=== PATIENT | female | born 1945 | race Caucasian/White ===

== ENCOUNTER 2019-10-27 13:30 | Emergency (ER) | payer MEDICARE, OTHER, SELFPAY ==
[2019-10-27 13:33] VITALS: BP 134/68; PULSE 72; RESP 18; TEMP 36.4; O2SAT 98
--- NOTE | 2019-10-27 13:45 | ED.GENADUL_ITS ---
Discharge Plan Disposition Patient Disposition: HOME Condition: Good Discharge Details Chief Complaint: Orthopedic Clinical Impression: Contusion of knee Primary Care Provider: Shannon Garcia ED Provider: Belinda Murillo Discharge Instructions Instructions: Contusion in Adults (ED) Additional Instructions: Encourage rest, ice, elevation. Ibuprofen as needed for discomfort. Please continue with Omar wrap to help with swelling will pain persist. If you develop new or worsening symptoms please seek care urgently once again. Otherwise, please follow-up with primary care if not improved in the next 2 weeks. Referrals: Shannon Garcia MD [Primary Care Provider] - Discharge Data Discharge Date/Time-TO BE ENTERED AT DEPARTURE: 10/27/19 16:05 Medical Decision Making Patient is 74-year-old female presented today with chief complaint of bilateral knee pain. Patient reports she slipped out of her car on some ice and landed directly on both knees onto the pavement. Struck anterior knees and since that time has not attempted to ambulate. Indicates the patella and prepatellar area is area of maximal discomfort. Denies previous surgeries or injuries to her knees. Denies striking her head, no loss of conscious. Denies other injury the time of the incident. No break in the skin. On exam, she has full range of motion., Ligamentously intact. No swelling no effusion. No evidence of trauma on her skin. Pain with palpation over her right > left patella. While she initially endorsed bilateral knee pain, left knee pain was very minimal with exam, again over the patella. i am concerned for possible patella fx. She is able to straight leg riase bilaterally. No palpable defect to either patellar tendon. Plan for XR of right knee. XR reviewed by radiologist: BONES: No acute fracture is present. No bony destructive lesion is seen. JOINTS: The knee is normally aligned. No joint effusion is seen. SOFT TISSUE: Normal. IMPRESSION: Unremarkable radiographs of the right knee. BONES: No acute fracture is present. No bony destructive lesion is seen. JOINTS: The knee is normally aligned. No joint effusion is seen. SOFT TISSUE: Normal. IMPRESSION: Normal radiographs of the left knee. Discussed these findings with [facility] patient. Advised that pain is likely associated with contusion. Encouraged RICE. Advised that OMAR may be of help if swelling was to ocur. Advised Tylenol and/or Ibuprofen as needed for discomfort. Advised f/u with PCP if not improving in the next 1-2 weeks. All of her questions and concerns were addressed, she is in agreement with this plan. HPI General Mode of arrival: ambulatory . Date/Time Provider Initiated Documentation: 10/27/19 13:38 . Limitations to Documentation: no limitations . Information obtained by: patient, family () and RN notes reviewed . HPI Narrative: Patient 74-year-old female, company by her , with chief complaint of bilateral knee pain. She reports prior to arrival, she was getting out of her car when she slipped on ice. States that she fell directly on the anterior aspect of bilateral knees and now has severe pain in bilateral patellas. Denies striking her head, no loss of conscious. Denies any headache. Denies other injury the time of the incident. No previous surgery to this knee, no previous injuries. Patient has not attempted to ambulate since fall Related Data Allergies Allergy/AdvReac Type Severity Reaction Status Date / Time Barbiturates AdvReac Intermediate chills/vomi Unverified 10/27/19 13:37 ting older muscle relaxants AdvReac Intermediate Uncoded 10/27/19 13:37 General Stated Complaint: Orthopedic MATTEO: 3 Review of Systems Constitutional Constitutional: Reports as per HPI, Denies chills, Denies fever(s), Denies headache(s) and Denies weakness ENT Ears, Nose, Mouth, and Throat: Denies headache(s) Cardiovascular Cardiovascular: Reports as per HPI Respiratory Respiratory: Reports as per HPI and Denies cough Musculoskeletal Musculoskeletal: Reports as per HPI and Denies tingling Integumentary/Breasts Skin/Breast: Reports as per HPI, Denies rash and Denies wounds Neurologic Neurologic: Reports as per HPI, Denies headache(s), Denies tingling, Denies paresthesias and Denies weakness FOR[facility] Social History Smoking/Tobacco Use Status: Never Drug use: Never Substance use type: does not use Do you feel safe at home: Yes Do you feel safe in your relationship?: Yes Exam Const General: cooperative, healthy appearing, comfortable, no acute distress, well developed and well groomed Nutritional Appearance: average body habitus and well nourished Orientation: alert and awake Resp Effort & Inspection: normal respiratory effort, able to speak in complete sentences and no respiratory distress Cardio Rate: regular rate Rhythm: regular rhythm Skin General skin exam: no rashes or lesions noted Lesions: no lesions Rashes: no rashes Trauma: no lacerations or abrasions Neuro General: alert and awake Cognition: normal cognition Speech: speech normal Gait: normal gait Motor: muscle tone normal throughout Sensory Exam: no sensory deficits noted Extrem Right lower extremity: normal to inspection, full ROM, normal capillary refill, no joint enlargement, hip/thigh Details: normal to inspection, knee Details: normal to inspection, tenderness Location: of the patella and of the pre- patellar area, normal ROM, knee ligament exam normal Details: anterior drawer test normal, posterior drawer test normal, valgus stress test normal and varus stress test normal; no pain with axial loading and Fox's Test Details: negative medially and laterally; no swelling, no abrasions, no lacerations, no ecchymosis, no crepitus, no deformity and no unusual warmth, lower leg Details: normal to inspection and foot Details: normal capillary refill and vascular exam Details: dorsalis pedis pulse present; no tenderness and no unusual warmth; no edema Left lower extremity: normal to inspection, full ROM, normal capillary refill, no joint enlargement, hip/thigh Details: normal to inspection, knee Details: normal to inspection, tenderness Location: of the patella and of the pre- patellar area, normal ROM, knee ligament exam normal Details: anterior drawer test normal, posterior drawer test normal, valgus stress test normal and varus stress test normal; pain with axial loading and Fox's Test Details: negative medially and laterally; no swelling, no abrasions, no lacerations, no ecchymosis, no crepitus, no deformity and no unusual warmth, lower leg Details: normal to inspection and foot Details: normal capillary refill, toes with normal ROM and vascular exam Details: dorsalis pedis pulse present; no tenderness; no edema Psych Appearance: grossly normal and well kempt Mental Status: mental status grossly normal Speech and Movement: speech and movement normal Course Vital Signs Vital signs: Vital Signs Temperature 36.4 C L 10/27/19 13:33 Pulse 72 10/27/19 13:33 Respiratory Rate 18 10/27/19 13:33 Blood Pressure 134/68 10/27/19 13:33 Pulse Oximetry 98 10/27/19 13:33 Temperature 36.4 C L 10/27/19 13:33 Temperature Source Skin 10/27/19 13:33 Pulse 72 10/27/19 13:33 Respiratory Rate 18 10/27/19 13:33 Respiratory Effort 10/27/19 13:39 Blood Pressure 134/68 10/27/19 13:33 Blood Pressure Position Supine 10/27/19 13:33 Pulse Oximetry 98 10/27/19 13:33 Oxygen Delivery Method Room Air 10/27/19 13:33 Oxygen Flow Rate 0 10/27/19 13:33 Pain Level 8 10/27/19 13:33 Comment 10/27/19 13:33
[2019-10-27] MEDS: Acetaminophen 500 MG TAB 1000 MG PO (13:52)
[2019-10-27] MEDS: Ibuprofen 600 MG TAB PO (14:16)
--- NOTE | 2019-10-27 14:20 | NUR.NOTE ---
Pt refused tylenol Nursing Note:
--- NOTE | 2019-10-27 14:38 | DI.RAD_ITS ---
EXAM: XR KNEE RT 4V AP,LAT,ORACIO,PAT CLINICAL HISTORY: struck patella, sunrise view please. TECHNIQUE: 2D digital imaging was performed. COMPARISON: No exams were available for comparison FINDINGS: BONES: No acute fracture is present. No bony destructive lesion is seen. JOINTS: The knee is normally aligned. No joint effusion is seen. SOFT TISSUE: Normal. IMPRESSION: Unremarkable radiographs of the right knee.
--- NOTE | 2019-10-27 14:44 | DI.RAD_ITS ---
EXAM: XR KNEE LT 4V AP,LAT,ORACIO,PAT CLINICAL HISTORY: struck patella, sunrise view please. TECHNIQUE: 2D digital imaging was performed. COMPARISON: XR KNEE RT 4V AP,LAT,ORACIO,PAT from 10/27/2019 FINDINGS: BONES: No acute fracture is present. No bony destructive lesion is seen. JOINTS: The knee is normally aligned. No joint effusion is seen. SOFT TISSUE: Normal. IMPRESSION: Normal radiographs of the left knee.
== END 2019-10-27 16:05 | disposition home or self-care (01) ==
PROVIDERS: Emergency Provider Physician Assistant; PCP Family Medicine
DX: S80.01XA Contusion of right knee, initial encounter (principal); S80.02XA Contusion of left knee, initial encounter; V48.4XXA Person boarding or alighting a car injured in noncollision transport accident, initial encounter
CPT/HCPCS: 99284; 73564

== ENCOUNTER 2019-12-24 01:21 | Outpatient (CLI) | payer MEDICARE, SELFPAY ==
--- NOTE | 2019-12-24 13:42 | DI.MAMMO_ITS ---
EXAM: MG MAMMO SCREENING CLINICAL HISTORY: SCREENING, Z12.39. TECHNIQUE: Full field digital CC and MLO mammographic images were obtained with 3D tomosynthesis and utilizing computer aided detection (CAD). COMPARISON: . 2011 and 2012 FINDINGS: Breast Density - Category B - Scattered areas of fibroglandular density Masses/Architectural Distortion: None seen. Microcalcifications: No suspicious pleomorphic-type calcifications are seen. Skin Thickening/Nipple Retraction: None. Axilla: Unremarkable. IMPRESSION: 1. BI-RADS category 1, negative. No significant interval change with no specific features of maligna ncy noted. 2. Unless there is more urgent need, screening mammography is recommended, as per [employer] guidelines. A negative radiographic report should not delay biopsy if a dominant or clinically suspicious mass is present. Up to ten percent of cancers are not identified on mammography. A negative report may reinforce clinical impression. Adenosis and dense breasts may obscure an underlying neoplasm. False positive reports average 6 to 10%. Patient will receive a letter notifying them of these results.
== END 2019-12-24 01:41 ==
PROVIDERS: PCP Family Medicine; Visit Provider Family Medicine
DX: Z12.31 Encounter for screening mammogram for malignant neoplasm of breast (principal)
CPT/HCPCS: 77063; 77067

== ENCOUNTER 2020-01-22 02:42 | Outpatient (CLI) | payer MEDICARE, SELFPAY ==
--- NOTE | 2020-01-22 | DI.DEXA_ITS ---
EXAM: XR DEXA BONE DENSITY W/WO SMILEY INDICATION: OSTEOPENIA, M85.88. COMPARISON: DEXA BONE DENSITY WITH SMILEY from 03/13/2012 DEXA BONE DENSITY WITH SMILEY from 10/01/2013 TECHNIQUE: Hologic densitometer FINDINGS: SMILEY image shows no evidence of compression fractures. The bone mineral density measurements of the l umbar spine correspond to a total T-score of -1.8, in the osteopenic range. This is not significantl y changed from the previous exams. The bone mineral density measurements of the left hip correspond to a total T-score of -2.4 and a femoral neck T-score of -2.5, at the borderline for osteoporosis. T otal bone mineral density has decreased 6.4 percent when compared with 2012 and 6.6 percent when comp ared with 2011. The bone mineral density measurements of left forearm correspond to a T-score of the distal 3rd of -4.4, in the osteoporotic range. This represents a 5.1 percent decrease when compared with 2012 and an 11.3 percent decrease when compared with 2011. IMPRESSION: Osteoporosis of the left forearm with decrease when compared with previous exams. Osteoporosis of th e left hip, decreased from previous exams. Osteopenia of the lumbar spine, stable. DATA REPOSITORY: RADIATION DOSE DELIVERED:
[2020-01-23 10:15] LABS: Calculated LDL 140 mg/dL (<100); Cholesterol 237 mg/dL (<200); Glucose 87 mg/dL (74-106); HDL Cholesterol 79 mg/dL (40-60); Triglyceride 93 mg/dL (<150)
== END 2020-01-22 03:02 ==
PROVIDERS: PCP Family Medicine; Visit Provider Family Medicine
DX: M81.0 Age-related osteoporosis without current pathological fracture (principal); M85.88 Other specified disorders of bone density and structure, other site; E78.00 Pure hypercholesterolemia, unspecified
CPT/HCPCS: 36415; 77080; 80061; 82947

== ENCOUNTER 2020-05-14 12:25 | Outpatient (REF) | payer MEDICARE, SELFPAY ==
[2020-05-14 18:35] LABS: ALT 23 U/L (14-59); AST 18 U/L (15-37); Albumin 3.7 g/dL (3.4-5.0); Alkaline Phosphatase 65 U/L (46-116); Anion Gap 8.8 mmol/L (3-11); BUN 23 mg/dL (7-18); Bilirubin, Total 0.3 mg/dL (0.2-1.0); CO2 27.2 mmol/L (21.0-32.0); CREATININE 0.93 mg/dL (0.55-1.02); Calcium 9.2 mg/dL (8.5-10.1); Chloride 105 mmol/L (98-107); Glucose 93 mg/dL (74-106); PHOSPHORUS 3.8 mg/dL (2.6-4.7); Sodium 141 mmol/L (136-145); Total Protein 6.7 g/dL (6.4-8.2)
[2020-05-17 10:42] LABS: Parathyroid Hormone,Intact 57 pg/mL (19-88)
== END 2020-05-14 12:45 ==
LOC: NCHCN 12:25
PROVIDERS: PCP Family Medicine; Visit Provider Family Medicine
DX: M81.0 Age-related osteoporosis without current pathological fracture (principal)
CPT/HCPCS: 80053; 82306; 83970; 84100

== ENCOUNTER 2020-10-08 03:40 | Outpatient (CLI) | payer MEDICARE, SELFPAY ==
--- NOTE | 2020-10-08 14:23 | DI.RAD_ITS ---
EXAM: XR SACROILIAC JOINTS and XR sacrum coccyx CLINICAL HISTORY: SACRAL BACK PAIN,54.89. TECHNIQUE: 2D digital imaging was performed. COMPARISON: No previous for comparison. FINDINGS: BONES: No acute fracture is present. No bony destructive lesion is seen. There is a transitional lumb osacral vertebral body. JOINTS: No dislocation present. Mild degenerative changes are seen at the sacroiliac joints. SOFT TISSUE: Normal. IMPRESSION: Mild degenerative changes of the SI joints. DATA REPOSITORY: RADIATION DOSE DELIVERED:
== END 2020-10-08 04:00 ==
PROVIDERS: PCP Family Medicine; Visit Provider Family Medicine
DX: M47.898 Other spondylosis, sacral and sacrococcygeal region (principal)
CPT/HCPCS: 72202; 72220

== ENCOUNTER 2022-05-03 16:05 | Outpatient (REF) | payer MEDICARE, SELFPAY ==
[2022-05-03 21:52] LABS: Iron 78 ug/dL (50-170); Total Iron Binding Capacity 271 ug/dL (250-450); Transferrin Sat 29 % (15-50)
[2022-05-03 22:08] LABS: Anion Gap 12.9 mmol/L (3-11); BUN 18 mg/dL (7-18); CO2 24.1 mmol/L (21.0-32.0); CREATININE 0.8 mg/dL (0.55-1.02); Calcium 8.8 mg/dL (8.5-10.1); Chloride 104 mmol/L (98-107); Ferritin 94 ng/mL (8-252); Glucose 116 mg/dL (74-106); Potassium 4.6 mmol/L (3.5-5.1); Sodium 141 mmol/L (136-145)
[2022-05-05 10:22] LABS: Hepatitis C Ab w Rflx HCV PCR Negative (Negative)
== END 2022-05-03 16:06 | disposition home or self-care (01) ==
LOC: NCHCN 16:05
PROVIDERS: PCP Family Medicine; Visit Provider Family Medicine
DX: L65.9 Nonscarring hair loss, unspecified (principal); M25.50 Pain in unspecified joint; Z11.59 Encounter for screening for other viral diseases
CPT/HCPCS: 80048; 86803; 82728; 83540; 83550; 84443

== ENCOUNTER 2023-06-20 15:11 | Outpatient (CLI) | payer MEDICARE, SELFPAY ==
--- NOTE | 2023-06-20 15:08 | DI.RAD_ITS ---
Exam(s) XR KNEE RT 4V+ EXAM: XR KNEE RT 4V+ CLINICAL HISTORY: RT KNEE PAIN, M25.561. TECHNIQUE: 2D digital imaging was performed of the right knee. Four views obtained. Merchant, AP, la teral and PA tunnel views were obtained. COMPARISON: CR XR KNEE RT 4V AP,LAT,ORACIO,PAT from 10/27/2019 FINDINGS: BONES: There is a lateral tibial plateau fracture. There is a vertical lucency in the metaphysis of t he proximal tibia suspicious for nondisplaced fracture. The lateral tibial plateau fracture is depres sed 6 mm. No bony destructive lesion is seen. JOINTS: The knee is normally aligned. There is a joint effusion. SOFT TISSUE: Normal. IMPRESSION: Depressed lateral tibial plateau fracture and joint effusion. A CT scan of the knee is recommended fo r further evaluation. DATA REPOSITORY:
== END 2023-06-20 15:31 ==
PROVIDERS: PCP Family Medicine; Visit Provider Nurse Practitioner Family
DX: M25.561 Pain in right knee (principal); S82.142A Displaced bicondylar fracture of left tibia, initial encounter for closed fracture; X58.XXXA Exposure to other specified factors, initial encounter
CPT/HCPCS: 73564

== ENCOUNTER 2023-06-22 00:55 | Outpatient (CLI) | payer MEDICARE, SELFPAY ==
--- NOTE | 2023-06-22 06:45 | DI.CT_ITS ---
Exam(s) CT LOWER EXTREMITY RT WO EXAM: CT LOWER EXTREMITY RT WO CLINICAL HISTORY: FX EVALUATION,closed fx lat portion of tibia,s82.123a. TECHNIQUE: Imaging Protocol: Axial computed tomography images with coronal and sagittal reformatted images were created and reviewed. COMPARISON: CR XR KNEE RT 4V+ from 06/20/2023 FINDINGS: Bones: There is a comminuted fracture of the lateral tibial plateau. There is depression of the fra cture of 1.1 cm. The fracture extends medially to an involve the mid tibial spines. It involves the lateral aspect of the medial tibial plateau. There is no significant depression of the medial tibia l plateau component of the fracture. Laterally the fracture extends inferiorly to involve the proxim al metaphysis. No other fracture is identified. No cellulitic or osteomyelitic changes are identifi ed. There is no evidence of joint space narrowing or cystic degeneration seen. No lytic or sclerotic lesions are identified. There is a joint effusion which is incompletely visualized. Soft Tissues: There is mild edema in the soft tissues around the knee. IMPRESSION: 1. Comminuted depressed fracture involving predominantly the lateral tibial plateau extending inferio rly into the lateral aspect of the proximal metaphysis. There is 1.1 cm of depression of the fractur e. 2. The fracture does in stent medially to involve the tibial spines and the mid lateral aspect of the medial tibial plateau. No significant medial tibial plateau depression is seen. 3. Joint effusion incompletely visualized. RADIATION DOSE DELIVERED: 411.98mGy.cm Total DLP 411.98mGy.cm Total DLP DATA REPOSITORY: All CT scans at this facility are submitted to the National Radiology Data Registry (NRDR) Dose Index Registry (DIR) with the [employer] (A[employer]). RADIATION OPTIMIZATION: All CT scans at this facility use at least one of these dose optimization te chniques: automated exposure control; mA and/or kV adjustment per patient size (includes targeted exa ms where dose is matched to clinical indication); or iterative reconstruction.
== END 2023-06-22 01:15 ==
LOC: DI 00:55
PROVIDERS: PCP Family Medicine; Visit Provider Student in an Organized Health Care Education/Training Program
DX: S82.142A Displaced bicondylar fracture of left tibia, initial encounter for closed fracture (principal); X58.XXXA Exposure to other specified factors, initial encounter
CPT/HCPCS: 73700

== ENCOUNTER 2023-07-13 12:06 | Outpatient (CLI) | payer MEDICARE, SELFPAY ==
--- NOTE | 2023-07-13 12:04 | DI.RAD_ITS ---
Exam(s) XR KNEE RT 2V AP,LAT EXAM: XR KNEE RT 2V AP,LAT CLINICAL HISTORY: right tibial plateau fracture. TECHNIQUE: 2D digital imaging was performed. Three views. COMPARISON: CR XR KNEE RT 4V+ from 06/20/[address] LOWER EXTREMITY RT WO from 06/22/2023 FINDINGS: BONES: There has been no change in the alignment of the lateral tibial plateau fracture which shows s ome slight interval healing. No new abnormalities. JOINTS: The knee is normally aligned. No joint effusion is seen. SOFT TISSUE: Normal. IMPRESSION: No change in lateral tibial plateau fracture DATA REPOSITORY: RADIATION DOSE DELIVERED:
--- NOTE | 2023-07-13 12:05 | DI.RAD_ITS ---
Exam(s) XR ANKLE RT COMPLETE EXAM: XR ANKLE RT COMPLETE CLINICAL HISTORY: right ankle pain. TECHNIQUE: 2D digital imaging was performed. Three views. COMPARISON: CT CT LOWER EXTREMITY RT WO from 06/22/2023 FINDINGS: BONES: No acute or subacute fracture is present. No talar dome defect. JOINTS: The ankle mortise is normally aligned. Tibial talar joint space is maintained. Minimal per iarticular spurring. SOFT TISSUE: Mild soft tissue swelling. IMPRESSION: No acute abnormality. DATA REPOSITORY: RADIATION DOSE DELIVERED:
== END 2023-07-13 12:07 | disposition home or self-care (01) ==
LOC: DIORS 12:06
PROVIDERS: PCP Family Medicine; Referring Provider Family Medicine; Visit Provider Student in an Organized Health Care Education/Training Program
DX: S82.121D Displaced fracture of lateral condyle of right tibia, subsequent encounter for closed fracture with routine healing; X58.XXXD Exposure to other specified factors, subsequent encounter
CPT/HCPCS: 99213; 73560; 73610

== ENCOUNTER 2023-08-03 11:06 | Outpatient (CLI) | payer MEDICARE, SELFPAY ==
--- NOTE | 2023-08-03 10:45 | DI.RAD_ITS ---
Exam(s) XR KNEE RT 2V AP,LAT EXAM: XR KNEE RT 2V AP,LAT CLINICAL HISTORY: eval R tibial plateau frx. TECHNIQUE: 2D digital imaging was performed of the right knee. Two views obtained. AP and lateral views were obtained. COMPARISON: CR XR KNEE RT 2V AP,LAT from 07/13/2023 FINDINGS: BONES: There has been no change in alignment of the lateral tibial plateau fracture. No bony destruc tive lesion is seen. JOINTS: The knee is normally aligned. There is a joint effusion. Mild degenerative changes are prese nt. SOFT TISSUE: Normal. IMPRESSION: Stable lateral tibial plateau fracture. DATA REPOSITORY: RADIATION DOSE DELIVERED:
== END 2023-08-03 11:07 | disposition home or self-care (01) ==
LOC: DIORS 11:06
PROVIDERS: PCP Family Medicine; Referring Provider Family Medicine; Visit Provider Student in an Organized Health Care Education/Training Program
DX: S82.121D Displaced fracture of lateral condyle of right tibia, subsequent encounter for closed fracture with routine healing (principal); X58.XXXD Exposure to other specified factors, subsequent encounter
CPT/HCPCS: 99213; 73560

== ENCOUNTER 2023-09-13 01:32 | Outpatient (CLI) | payer MEDICARE, SELFPAY ==
--- NOTE | 2023-09-13 10:30 | DI.DEXA_ITS ---
Exam(s) XR DEXA BONE DENSITY W/WO SMILEY EXAM: XR DEXA BONE DENSITY W/WO SMILEY CLINICAL HISTORY: OSTEOPOROSIS, M81.0 TECHNIQUE: COMPARISON: CR XR DEXA BONE DENSITY W/WO SMILEY from 01/22/2020 FINDINGS: Lateral Spine Image: Unremarkable. No compression deformities identified. Left hip: Total T-Score: -2.9. This compares to -2.4 on the prior examination. Total Z-Score: -1.1 T- and Z-scores: Findings are consistent with osteoporosis. Lumbar Spine: Total T-Score: -1.9. This compares to -1.8 on the prior examination. Total Z-Score: 0.6 T- and Z-scores: Findings are consistent with osteopenia. There is osteoporosis in the left forearm with a total T-score of -4.0 and a Z-score of -1.4. IMPRESSION: Osteoporosis in the left hip and left forearm.
== END 2023-09-13 01:52 ==
LOC: DI 01:32
PROVIDERS: PCP Family Medicine; Visit Provider Family Medicine
DX: M81.0 Age-related osteoporosis without current pathological fracture (principal); Z13.820 Encounter for screening for osteoporosis
CPT/HCPCS: 77080

== ENCOUNTER 2025-09-21 15:57 | Outpatient (REF) | payer MEDICARE, SELFPAY, BC ==
[2025-09-21 21:23] LABS: HCT 39.0 % (36.0-46.0); HGB 13.2 g/dL (11.2-15.7); MCH 31.7 pg (27.0-33.0); MCHC 33.8 % (32.0-36.0); MCV 94 fL (80-95); MPV 10.2 fL (8.0-11.0); Platelet Count 243 10^3/uL (130-400); RBC 4.16 10^6/uL (3.93-5.22); RDW 12.2 % (11.7-14.6); RDW-SD 42.1 fL; WBC 7.02 10^3/uL (4.4-10.8)
[2025-09-21 21:28] LABS: Glucose Negative (Negative)
[2025-09-21 21:41] LABS: Hemoglobin A1C 5.2 % (<5.7)
[2025-09-21 21:41] LABS: C & S Indicated? Yes; RBC >50 HPF (0-2); WBC >50 HPF (0-5)
[2025-09-21 22:02] LABS: ALT 21 U/L (14-59); AST 19 U/L (15-37); Albumin 3.7 g/dL (3.4-5.0); Alkaline Phosphatase 72 U/L (46-116); Anion Gap 9.8 mmol/L (3-11); BUN 14 mg/dL (7-18); Bilirubin, Total 0.5 mg/dL (0.2-1.0); CO2 26.2 mmol/L (21.0-32.0); Calcium 9.4 mg/dL (8.5-10.1); Chloride 106 mmol/L (98-107); Estimated GFR 65.44 (mL/min/1.73m2); Glucose 90 mg/dL (74-106); Potassium 5.2 mmol/L (3.5-5.1); Sodium 142 mmol/L (136-145); TSH (W/Ref FT4) 1.96 uIU/mL (0.36-3.74); Total Protein 6.9 g/dL (6.4-8.2)
== END 2025-09-21 15:58 | disposition home or self-care (01) ==
LOC: NCHCN 15:57
PROVIDERS: PCP Family Medicine; Visit Provider Family Medicine
DX: N39.41 Urge incontinence (principal); R42 Dizziness and giddiness; R55 Syncope and collapse
CPT/HCPCS: 80053; 85027; 87077; 81003; 81015; 83036; 84443; 87086; 87186

== ENCOUNTER 2025-09-22 01:21 | Outpatient (CLI) | payer MEDICARE, SELFPAY ==
[2025-09-22 14:06] LABS: ALT 20 U/L (14-59); AST 15 U/L (15-37); Albumin 3.5 g/dL (3.4-5.0); Alkaline Phosphatase 68 U/L (46-116); Anion Gap 8.7 mmol/L (3-11); BUN 13 mg/dL (7-18); Bilirubin, Total 0.7 mg/dL (0.2-1.0); CO2 28.3 mmol/L (21.0-32.0); Calcium 9.1 mg/dL (8.5-10.1); Chloride 102 mmol/L (98-107); Estimated GFR 65.44 (mL/min/1.73m2); Glucose 101 mg/dL (74-106); Potassium 4.0 mmol/L (3.5-5.1); Sodium 139 mmol/L (136-145); TSH (W/Ref FT4) 1.83 uIU/mL (0.36-3.74); Total Protein 7.2 g/dL (6.4-8.2); Vitamin D 25 Total 32 ng/mL (30-100)
[2025-09-23 14:07] LABS: Albumin 60.6 % (55.8-66.1); Albumin g/dL 4.1 g/dL (3.6-5.2); Alpha 1 g/dL 0.30 g/dL (0.15-0.40); Alpha 2 g/dL 0.80 g/dL (0.50-1.00); Beta g/dL 0.80 g/dL (0.60-1.20); Gamma g/dL 0.80 g/dL (0.60-1.60); Total Protein 6.7 g/dL (6.3-8.2)
== END 2025-09-22 01:22 | disposition home or self-care (01) ==
PROVIDERS: PCP Family Medicine; Visit Provider Family Medicine
DX: M81.0 Age-related osteoporosis without current pathological fracture (principal)
CPT/HCPCS: 36415; 80053; 82306; 83970; 84100; 84165; 84443

== ENCOUNTER 2025-10-13 14:15 | Outpatient (REF) | payer MEDICARE, SELFPAY, BC ==
[2025-10-13 20:10] LABS: Anion Gap 8.3 mmol/L (3-11); BUN 12 mg/dL (9-23); CO2 28.7 mmol/L (20.0-31.0); Calcium 9.8 mg/dL (8.3-10.6); Chloride 107 mmol/L (98-107); Glucose 90 mg/dL (74-106); Potassium 4.9 mmol/L (3.5-5.1); Sodium 144 mmol/L (136-145)
== END 2025-10-13 14:16 | disposition home or self-care (01) ==
LOC: NCHCN 14:15
PROVIDERS: PCP Family Medicine
DX: E87.5 Hyperkalemia (principal)
CPT/HCPCS: 80048

== ENCOUNTER → 2025-10-15 05:48 | Outpatient (CLI) | payer MEDICARE, SELFPAY, BC ==
--- NOTE | 2025-10-15 | DI.DEXA_ITS ---
Exam(s) XR DEXA BONE DENSITY W/WO SMILEY EXAM: XR DEXA BONE DENSITY W/WO SMILEY CLINICAL HISTORY: SENILE OSTEOPOROSIS, CURRENT PATHOLOGICAL FRACTURE M81.0 TECHNIQUE: [employer] C densitometer analysis of left hip, lumbar spine and left forearm. Lateral survey image of the thoracic and lumbar spine. COMPARISON: CR XR DEXA BONE DENSITY W/WO SMILEY from 09/13/2023nd exams back to 2011 FINDINGS: Lateral view of the thoracic and lumbar spine shows accentuation of the thoracic kyphosis with anterior wedging midthoracic vertebral bodies.. Bone mineral density measurements of the lumbar spine correspond to a total T- score of -1.3, in the osteopenic range. This represents an 8.1 percent increase from 2022 and a 7.5 percent increase compared with 2011. Bone mineral density measurements of the left hip correspond to a total T-score of -2.7. This represents a 5.5 percent increase from 2022 but a 10.9 percent decrease from 2011. The femoral neck T-score is -3.0, in the osteoporotic range. Theleft forearm bone mineral density measurements correspond to a T-score of the distal 3rd of -4.2, in the osteoporotic range. This represents a 4.2 percent increase from 2022 and 8.4 percent decrease from 2011. IMPRESSION: Osteopenia of the lumbar spine. Osteoporosis of the hip and forearm.
== END ==
LOC: DI 05:48
PROVIDERS: PCP Family Medicine; Visit Provider Family Medicine
DX: M81.0 Age-related osteoporosis without current pathological fracture (principal); Z78.0 Asymptomatic menopausal state
CPT/HCPCS: 77080